=== PATIENT | female | born 1995 | race African-American/Black ===

== ENCOUNTER 2018-09-06 19:35 | Emergency (ER) | payer OTHER, SELFPAY | END 2018-09-06 19:45 | disposition home or self-care (01) | LOC: BURERS 19:35 | DX: S00.411A Abrasion of right ear, initial encounter (principal); H66.91 Otitis media, unspecified, right ear; I10 Essential (primary) hypertension; X58.XXXA Exposure to other specified factors, initial encounter | CPT/HCPCS: 99282 ==

== ENCOUNTER 2019-09-28 18:25 | Emergency (ER) | payer BC, SELFPAY ==
[2019-09-28 19:10] LABS: Bilirubin Negative (Negative); Blood, Urine Large (Negative); Glucose, Urine (Dipstick) Negative (Negative); Ketone, Urine Trace mg/dL (Negative); Leukocyte Small (Negative); Nitrite Negative (Negative); Protein, Urine (Dipstick) 30 mg/dL (Neg-Trace); Urobilinogen 0.2 mg/dL (Less than 2); pH, Urine 7.5 (5.0-9.0)
[2019-09-28 19:16] LABS: Clarity Cloudy (Clear)
[2019-09-28 19:17] LABS: Bacteria/HPF 1+ HPF (None Seen)
== END 2019-09-28 19:36 | disposition home or self-care (01) ==
LOC: BURERS 18:25
DX: O20.0 Threatened abortion (principal); O16.1 Unspecified maternal hypertension, first trimester; Z3A.09 9 weeks gestation of pregnancy
CPT/HCPCS: 36415; 81003; 81015; 84702; 87086; 87480; 87491; 87510; 87591; 87660; 99284

== ENCOUNTER 2021-11-19 21:42 | Emergency (ER) | payer BC, MEDICAID ==
[2021-11-19] MEDS ORDERED: Ondansetron ODT 4 MG TAB ONE (22:10)
[2021-11-19] MEDS ORDERED: Metoclopramide HCl 10 MG TAB ONE (22:22)
[2021-11-19] MEDS ORDERED: Acetaminophen 500 MG TAB ONE (22:22)
[2021-11-19] MEDS ORDERED: Metoclopramide HCl 10 MG/2 ML VIAL ONE (22:22)
[2021-11-19] MEDS ORDERED: diphenhydrAMINE 50 MG/ML VIAL ONE (22:22)
[2021-11-19] MEDS ORDERED: Ketorolac Tromethamine 30 MG/ML VIAL ONE (22:46)
== END 2021-11-19 23:56 | disposition home or self-care (01) ==
LOC: BURERS 21:42
DX: J11.1 Influenza due to unidentified influenza virus with other respiratory manifestations (principal); Z20.822 Contact with and (suspected) exposure to COVID-19
CPT/HCPCS: 87804; 96374; 96375; J1200; J1885; J2765; Q0162; U0003; U0005